=== PATIENT | female | born 1960 | race Caucasian/White ===

== ENCOUNTER 2019-12-22 11:55 | Emergency (ER) | payer OTHER, MEDICARE ==
--- NOTE | 2019-12-22 12:06 | ER Document Report ---
ED Medical Screen (RME) - General Chief Complaint: Back Pain Stated Complaint: BACK PAIN Time Seen by Provider: 12/22/19 12:04 Notes: HPI: 59-year-old female presenting with right lower back pain intermittent for the last 3 to 4 days with history of kidney stones. States she had a kidney stone on the left a month ago. Reports some discomfort with urination occasional nausea no fever no vomiting states pain feels similar to prior kidney stones PHYSICAL EXAMINATION: Mild tenderness of the right lateral lumbar musculature of the back. No flank or abdominal pain on palpation I have greeted and performed a rapid initial assessment of this patient. A comprehensive ED assessment and evaluation of the patient, analysis of test results and completion of medical decision making process will be conducted by an additional ED providers. - Related Data Allergies/Adverse Reactions: codeine Allergy (Verified 12/22/19 12:02) Physical Exam - Vital signs Vitals: Temp Pulse Resp BP Pulse Ox 98.6 F 77 19 150/94 H 99 12/22/19 12:02 12/22/19 12:02 12/22/19 12:02 12/22/19 12:02 12/22/19 12:02 Course - Vital Signs Vital signs: Temp Pulse Resp BP Pulse Ox 98.6 F 77 19 150/94 H 99 12/22/19 12:02 12/22/19 12:02 12/22/19 12:02 12/22/19 12:02 12/22/19 12:02
--- NOTE | 2019-12-22 12:23 | ER Document Report ---
ED GI/ - General Chief Complaint: Flank Pain Stated Complaint: BACK PAIN Time Seen by Provider: 12/22/19 12:04 Information source: Patient Notes: This 59-year-old female presented to the emergency room today stating that she has discomfort to her right flank with radiation around to the groin she states she had a kidney stone ago and this does feel somewhat similar. - HPI Patient complains to provider of: Dysuria Timing/Duration: Gradual Quality of pain: Achy Severity at maximum: Moderate - Related Data Allergies/Adverse Reactions: codeine Allergy (Verified 12/22/19 12:02) Past Medical History - General Information source: Patient - Social History Smoking Status: Never Smoker Cigarette use (# per day): No Chew tobacco use (# tins/day): No Smoking Education Provided: No Family History: None Review of Systems - Review of Systems Constitutional: No symptoms reported EENT: No symptoms reported Cardiovascular: No symptoms reported Respiratory: No symptoms reported Gastrointestinal: No symptoms reported Genitourinary: No symptoms reported Female Genitourinary: No symptoms reported Musculoskeletal: No symptoms reported Skin: No symptoms reported Hematologic/Lymphatic: No symptoms reported Neurological/Psychological: No symptoms reported Physical Exam - Vital signs Vitals: Temp Pulse Resp BP Pulse Ox 98.6 F 77 19 150/94 H 99 12/22/19 12:02 12/22/19 12:02 12/22/19 12:02 12/22/19 12:02 12/22/19 12:02 Interpretation: Normal - General General appearance: Appears well, Alert - HEENT Head: Normocephalic, Atraumatic Eyes: Normal Pupils: PERRL - Respiratory Respiratory status: No respiratory distress Chest status: Nontender Breath sounds: Normal Chest palpation: Normal - Cardiovascular Rhythm: Regular Heart sounds: Normal auscultation Murmur: No - Abdominal Inspection: Normal Distension: No distension Bowel sounds: Normal Tenderness: Nontender Organomegaly: No organomegaly - Back Back: Normal - Right flank pain lateral to midline radiation around to the groin. She had no midline tenderness no step-off no crepitus she is ambulatory with a rhythmic and steady gait., Nontender - Extremities General upper extremity: Normal inspection, Nontender, Normal color, Normal ROM, Normal temperature General lower extremity: Normal inspection, Nontender, Normal color, Normal ROM, Normal temperature, Normal weight bearing. No: Ashish's sign - Neurological Neuro grossly intact: Yes Cognition: Normal Orientation: AAOx4 [place] Coma Scale Eye Opening: Spontaneous [place] Coma Scale Verbal: Oriented Santiago Coma Scale Motor: Obeys Commands Santiago Coma Scale Total: 15 Speech: Normal Motor strength normal: LUE, RUE, LLE, RLE Sensory: Normal - Psychological Associated symptoms: Normal affect, Normal mood - Skin Skin Temperature: Warm Skin Moisture: Dry Skin Color: Normal Course - Vital Signs Vital signs: Temp Pulse Resp BP Pulse Ox 98.6 F 77 19 150/94 H 99 12/22/19 12:02 12/22/19 12:02 12/22/19 12:02 12/22/19 12:02 12/22/19 12:02 - Laboratory Result Diagrams: 12/22/19 13:03 12/22/19 13:03 Laboratory results interpreted by me: 12/22/19 12/22/19 13:03 13:03 Glucose 154 H AST 52 H ALT 51 H Urine Protein 30 H Ur Leukocyte Esterase LARGE H Urine Ascorbic Acid 40 H - Diagnostic Test Radiology reviewed: Image reviewed, Reports reviewed Radiology results interpreted by me: 12/22/19 13:49 Abdomen/Pelvis CT 12/22/19 12:06 IMPRESSION: No evidence of acute intra-abdominal infectious/inflammatory process or obstructive uropathy. Chronic and incidental findings as detailed above. Discharge - Discharge Clinical Impression: UTI (urinary tract infection) Qualifiers: Urinary tract infection type: site unspecified Hematuria presence: without hematuria Qualified Code(s): N39.0 - Urinary tract infection, site not specified Condition: Good Disposition: HOME, SELF-CARE Instructions: Urinary Tract Infection ([facility]), Low Back Pain ([facility]), Nitrofurantoin ([facility]) Prescriptions: Nitrofurantoin Monohyd/M-Cryst [Macrobid 100 mg Capsule] 100 mg PO BID #20 cap Phenazopyridine HCl [Pyridium 200 mg Tablet] 200 mg PO TID #15 tablet
[2019-12-22] MEDS: KETOROLAC TROMETHAMINE INJ/PF 30 MG/1 ML SDV IV ONE ×2 (12:43→12:57)
[2019-12-22] MEDS ORDERED: KETOROLAC TROMETHAMINE 60 MG/2 ML SDV IM ONE (12:56)
--- NOTE | 2019-12-22 12:59 | RADIOLOGY REPORT (SQ) ---
EXAM DESCRIPTION: CT ABD/PELVIS NO ORAL OR IV IMAGES COMPLETED DATE/TIME: 12/22/2019 12:40 pm REASON FOR STUDY: right flank pain COMPARISON: None. TECHNIQUE: CT scan of the abdomen and pelvis performed without intravenous or oral contrast. Images reviewed with lung, soft tissue, and bone windows. Reconstructed coronal and sagittal MPR images revi ewed. All images stored on PACS. All CT scanners at this facility use dose modulation, iterative reconstruction, and/or weight based d osing when appropriate to reduce radiation dose to as low as reasonably achievable (ALARA). [facility]: Dose Right [facility]: CareDose [facility]: Dose Right [facility]: Teradose 4D [facility]: Smart He[employer] RADIATION DOSE: CT Rad equipment meets quality standard of care and radiation dose reduction techniq ues were employed. CTDIvol: 18.1 mGy. DLP: 1096 mGy-cm.mGy. LIMITATIONS: None. FINDINGS: LOWER CHEST: No significant findings. No nodules or infiltrates. NON-CONTRASTED LIVER, SPLEEN, ADRENALS: Evaluation limited by lack of IV contrast. No identified sign ificant masses. PANCREAS: No masses. No peripancreatic inflammatory changes. GALLBLADDER: Surgically absent. RIGHT KIDNEY AND URETER: No suspicious masses. Assessment limited by lack of IV contrast. No signif icant calcifications. No hydronephrosis or hydroureter. LEFT KIDNEY AND URETER: No suspicious masses. Assessment limited by lack of IV contrast. No signifi cant calcifications. No hydronephrosis or hydroureter. AORTA AND RETROPERITONEUM: No aneurysm. No retroperitoneal masses or adenopathy. BOWEL AND PERITONEAL CAVITY: No obvious masses or inflammatory changes. No free fluid. APPENDIX: Normal. PELVIS, BLADDER, AND ABDOMINAL WALL:The bladder is decompressed. No masses. No free fluid. BONES: No significant findings. 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 OTHER: No other significant finding. IMPRESSION: No evidence of acute intra-abdominal infectious/inflammatory process or obstructive urop athy. Chronic and incidental findings as detailed above. COMMENT: Quality ID # [id number]: Final reports with documentation of one or more dose reduction techniques (e.g., Automated exposure control, adjustment of the mA and/or kV according to patient size, use of iterative reconstruction technique) TECHNICAL DOCUMENTATION: JOB ID: [id number] 2011 [employer]- All Rights Reserved Reading location - IP/workstation name: [email or web address]
[2019-12-22 13:14] LABS: ABSOLUTE EOSINOPHILS # (AUTO) 0.1 10^3/uL (0.0-0.6); ABSOLUTE LYMPHOCYTES (AUTO) 1.9 10^3/uL (0.5-4.7); ABSOLUTE MONOCYTES (AUTO) 0.4 10^3/uL (0.1-1.4); ABSOLUTE NEUT (AUTO) 4.7 10^3/uL (1.7-8.2); BASOPHILS % (AUTO) 0.5 % (0-2); EOSINOPHILS % (AUTO) 1.6 % (0-6); HEMATOCRIT 40.6 % (36.0-47.0); HEMOGLOBIN 13.8 g/dL (12.0-15.5); LYMPHOCYTES % (AUTO) 26.4 % (13-45); MEAN CORPUSCULAR HEMOGLOBIN 31.2 pg (27.0-33.4); MEAN CORPUSCULAR VOLUME 92 fl (80-97); MONOCYTES % (AUTO) 5.2 % (3-13); PLATELET COUNT 284 10^3/uL (150-450); RED BLOOD COUNT 4.41 10^6/uL (3.72-5.28); RED CELL DISTRIBUTION WIDTH 13.6 % (11.5-14.0); SEGMENTED NEUTROPHILS % (AUTO) 66.3 % (42-78); TOTAL CELLS COUNTED % (AUTO) 100 %; WHITE BLOOD COUNT 7.1 10^3/uL (4.0-10.5)
[2019-12-22 13:18] LABS: APPEARANCE,URINE SLIGHTLY-CLOUDY; BILIRUBIN,URINE NEGATIVE (NEGATIVE); COLOR,URINE YELLOW; GLUCOSE, URINE NEGATIVE (NEGATIVE); KETONES,URINE NEGATIVE (NEGATIVE); LEUKOCYTE ESTERASE,URINE LARGE (NEGATIVE); NITRITE,URINE NEGATIVE (NEGATIVE); PROTEIN,URINE 30 mg/dL (NEGATIVE); URINE SPECIFIC GRAVITY 1.024; UROBILINOGEN,URINE NEGATIVE mg/dL (<2.0)
[2019-12-22 13:32] LABS: ALBUMIN 4.3 g/dL (3.5-5.0); ALKALINE PHOSPHATASE 108 U/L (38-126); ANION GAP 6 (5-19); ASPARTATE AMINO TRANSFERASE 52 U/L (14-36); BILIRUBIN,DIRECT 0.1 mg/dL (0.0-0.4); BILIRUBIN,TOTAL 0.4 mg/dL (0.2-1.3); BLOOD UREA NITROGEN 16 mg/dL (7-20); CALCIUM 9.4 mg/dL (8.4-10.2); CARBON DIOXIDE 28 mmol/L (22-30); CHLORIDE 103 mmol/L (98-107); GLUCOSE 154 mg/dL (75-110); POTASSIUM 4.7 mmol/L (3.6-5.0); TOTAL PROTEIN 7.3 g/dL (6.3-8.2)
[2019-12-22] MEDS ORDERED: CEFTRIAXONE INJ 1000 MG VIAL IM ONE (13:48)
[2019-12-22] MEDS ORDERED: LIDOCAINE 1% INJ (10 MG/ML) 10 ML MDV INJ ONE (13:55)
[2019-12-22 14:06] VITALS: BP 152/92
== END 2019-12-22 14:40 | disposition home or self-care (01) ==
LOC: ER 11:55
DX: N39.0 Urinary tract infection, site not specified (principal); R30.0 Dysuria; R10.9 Unspecified abdominal pain; M54.9 Dorsalgia, unspecified; R10.31 Right lower quadrant pain; Z87.442 Personal history of urinary calculi
CPT/HCPCS: 99284; 96372; 36415; 85025; 80053; 81001; 74176; J1885; J0696

== ENCOUNTER 2020-05-10 14:26 | Emergency (ER) | payer OTHER, MEDICARE ==
--- NOTE | 2020-05-10 15:05 | ER Document Report ---
ED Medical Screen (RME) - General Chief Complaint: Back Pain Stated Complaint: LOWER BACK PAIN,URINARY ISSUES Time Seen by Provider: 05/10/20 14:51 Mode of Arrival: Ambulatory Information source: Patient Notes: Patient is a 59-year-old female comes emergency room with 2 complaints. Patient's first complaint is that she started with a urinary tract infection approximately 1 week ago. States is getting worse. She states that she is having urgency with it and it stings when she urinates. Also #2 patient states that approximately the same time may be a couple days before that she fell in the back landing on her buttocks. She is complaining of low back pain. Patient does not know whether the back pain is from the urinary tract infection or from when she fell in the shower. Patient has a history of hypertension and oral dependent diabetes. Patient was last seen here in December for similar presentation. At that time she was diagnosed with a urinary tract infection. Physical exam shows patient to be a well-nourished well-developed obese 59-year-old female who is in no apparent distress on examination today. Cardiac: Patient displays a regular rate on the monitor of 78 bpm rhythm appears normal on auscultation and there is no murmurs auscultated. Lungs: Bilateral breath sounds breath sounds increased clear to auscultation. Abdomen: Bowel sounds are present all 4 quads in the sitting position patient has some mild tenderness to deep palpation suprapubically. But all quadrants are negative besides that. Back: Examination patient's her concern does show some reproducible tenderness in the L4-L5 area to palpation. Quick neuro examination the patient shows that she has good strength in bilateral lower extremities. She has good sensation from the inner ankles to the groin as she does from the outer ankles to the hips no sign of saddle paresthesia. I have greeted and performed a rapid initial assessment of this patient. A comprehensive ED assessment and evaluation of the patient, analysis of test results and completion of the medical decision making process will be conducted by additional ED providers. Dictation of this chart was performed using voice recognition software; therefore, there may be some unintended grammatical errors. - Related Data Allergies/Adverse Reactions: codeine Allergy (Verified 12/22/19 12:02) Past Medical History - Social History Chew tobacco use (# tins/day): No Frequency of alcohol use: None Drug Abuse: None Endocrine Medical History: Reports: Hx Diabetes Mellitus Type 2 Physical Exam - Vital signs Vitals: Temp Pulse Resp BP Pulse Ox 97.9 F 78 18 153/85 H 97 05/10/20 14:30 05/10/20 14:30 05/10/20 14:30 05/10/20 14:30 05/10/20 14:30 Course - Vital Signs Vital signs: Temp Pulse Resp BP Pulse Ox 97.9 F 78 18 153/85 H 97 05/10/20 14:30 05/10/20 14:30 05/10/20 14:30 05/10/20 14:30 05/10/20 14:30
--- NOTE | 2020-05-10 16:22 | RADIOLOGY REPORT (SQ) ---
EXAM DESCRIPTION: L SPINE WHOLE IMAGES COMPLETED DATE/TIME: 05/10/2020 4:04 pm REASON FOR STUDY: Fall COMPARISON: None. NUMBER OF VIEWS: Five views including obliques. TECHNIQUE: AP, lateral, oblique, and sacral radiographic images acquired of the lumbar spine. LIMITATIONS: None. FINDINGS: MINERALIZATION: Normal. SEGMENTATION: Normal. No transitional anatomy. ALIGNMENT: Mild scoliosis convex left VERTEBRAE: Maintained height. No fracture or worrisome bone lesion. DISCS: Degenerative disc disease L2-3 and L3-4 with disc space narrowing. POSTERIOR ELEMENTS: Pedicles and facets are intact. No pars defect or posterior arch defects. HARDWARE: None in the spine. PARASPINAL SOFT TISSUES: Normal. PELVIS: Intact as visualized. No fractures or worrisome bone lesions. SI joints intact. OTHER: No other significant finding. IMPRESSION: Degenerative disc disease. No acute findings. TECHNICAL DOCUMENTATION: JOB ID: [id number] 2010 [employer]- All Rights Reserved Reading location - IP/workstation name: [email or web address]
[2020-05-10 17:01] LABS: APPEARANCE,URINE CLEAR; BILIRUBIN,URINE NEGATIVE (NEGATIVE); COLOR,URINE STRAW; GLUCOSE, URINE NEGATIVE (NEGATIVE); KETONES,URINE NEGATIVE (NEGATIVE); LEUKOCYTE ESTERASE,URINE TRACE (NEGATIVE); NITRITE,URINE NEGATIVE (NEGATIVE); PROTEIN,URINE NEGATIVE (NEGATIVE); URINE SPECIFIC GRAVITY 1.008; UROBILINOGEN,URINE NEGATIVE mg/dL (<2.0)
[2020-05-10] MEDS ORDERED: KETOROLAC TROMETHAMINE 60 MG/2 ML SDV IM ONE (17:24)
--- NOTE | 2020-05-10 17:32 | ER Document Report ---
ED General - General Chief Complaint: Back Pain Stated Complaint: LOWER BACK PAIN,URINARY ISSUES Time Seen by Provider: 05/10/20 14:51 Primary Care Provider: TIARRA,FRED [Primary Care Provider] - Follow up as needed Mode of Arrival: Ambulatory Information source: Patient Notes: Patient presents to the ER for evaluation of low back pain with dysuria that began approximately 1 week ago. The patient states she was diagnosed with a urinary tract infection at that time. She states she also fell in the shower approximately 2 days prior to the diagnosis of the urinary tract infection. She denies weakness or numbness in the lower extremities. She denies fever. She denies loss of bowel or bladder. She is ambulatory but states it caused increased pain in the low back. The patient states she does have type 2 diabetes and takes her medication as prescribed. She states she does not check her blood sugar. She is concerned her blood sugar may be causing her problems. Nursing notes reviewed and past medical, social, and family histories reviewed and validated. - Related Data Allergies/Adverse Reactions: codeine Allergy (Verified 12/22/19 12:02) Past Medical History - General Information source: Patient - Social History Smoking Status: Never Smoker Chew tobacco use (# tins/day): No Frequency of alcohol use: None Drug Abuse: None Lives with: Family Family History: None Patient has suicidal ideation: No Patient has homicidal ideation: No Pulmonary Medical History: Reports: None EENT Medical History: Reports: None Neurological Medical History: Reports: None Endocrine Medical History: Reports: Hx Diabetes Mellitus Type 2 Renal/ Medical History: Reports: Other - Urinary tract infections Malignancy Medical History: Reports: None GI Medical History: Reports: None Musculoskeletal Medical History: Reports None Skin Medical History: Reports None Psychiatric Medical History: Reports: None Traumatic Medical History: Reports: None Infectious Medical History: Reports: None Past Surgical History: Reports: None - Immunizations Immunizations up to date: Yes Hx Diphtheria, Pertussis, Tetanus Vaccination: Yes Review of Systems - Review of Systems Notes: Constitutional: Negative for fever. HENT: Negative for sore throat. Eyes: Negative for visual changes. Cardiovascular: Negative for chest pain. Respiratory: Negative for shortness of breath. Gastrointestinal: Negative for abdominal pain, vomiting or diarrhea. Genitourinary: Positive dysuria Musculoskeletal: Positive low back pain Skin: Negative for rash. Neurological: Negative for headaches, weakness or numbness. 10 point ROS negative except as marked above and in HPI. Physical Exam - Vital signs Vitals: Temp Pulse Resp BP Pulse Ox 97.9 F 78 18 153/85 H 97 05/10/20 14:30 05/10/20 14:30 05/10/20 14:30 05/10/20 14:30 05/10/20 14:30 - Notes Notes: CONSTITUTIONAL: Well appearing. No acute distress. SKIN: Warm, dry, and intact without rash EYES: Extraocular movements are grossly intact, clear conjunctiva HENT: Normocephalic, atraumatic, moist mucus membranes NECK: No obvious swelling, normal range of motion PULMONARY: Normal chest rise and fall. Breath sounds clear and equal bilaterally. No respiratory distress or stridor CARDIOVASCULAR: Regular rate. No murmurs, rubs, gallops. Distal extremities are warm and well perfused. ABDOMINAL: Soft, nontender NEUROLOGIC: Normal speech, moves all extremities. Cranial nerves are within normal limits. Overhead Cleaner Maintainer strength strong and equal in the upper extremities bilaterally. There is good strength and sensation in bilateral lower extremities. There is no arm or leg drift noted. MUSCULOSKELETAL: There is mild tenderness palpation of the paravertebral lumbar muscles. No spinal tenderness noted. PSYCHIATRIC: Normal mood and affect Course - Re-evaluation Re-evalutation: 05/10/20 17:25 Rechecked patient who has responded well to treatment in the ER. Discussed with patient: results, diagnosis, treatment plan, and need for follow-up. Return to the emergency department warnings were given. All questions and concerns were addressed. The plan is agreed with and understood. Patient is stable and ready for discharge. - Vital Signs Vital signs: Temp Pulse Resp BP Pulse Ox 97.9 F 78 18 153/85 H 97 05/10/20 14:30 05/10/20 14:30 05/10/20 14:30 05/10/20 14:30 05/10/20 14:30 - Laboratory Laboratory results interpreted by me: 05/10/20 05/10/20 16:35 17:11 POC Glucose 140 H Ur Leukocyte Esterase TRACE H Discharge - Discharge Clinical Impression: Dysuria Diabetes Qualifiers: Diabetes mellitus type: type 2 Diabetes mellitus fpc insulin use: without fpc use Diabetes mellitus complication status: with hyperglycemia Qualified Code(s): E11.65 - Type 2 diabetes mellitus with hyperglycemia Low back pain Qualifiers: Chronicity: acute Back pain laterality: bilateral Sciatica presence: without sciatica Qualified Code(s): M54.5 - Low back pain Condition: Good Disposition: HOME, SELF-CARE Instructions: Low Back Pain ([facility]) Additional Instructions: Be sure to take your diabetes medication and follow-up with your primary care doctor as discussed. You need to be checking your blood sugar daily. Prescriptions: Ketorolac Tromethamine [Toradol 10 mg Tablet] 10 mg PO Q8HP PRN #12 tablet PRN Reason: For Pain Referrals: [facility] [Primary Care Provider] - Follow up as needed
[2020-05-10 17:48] VITALS: BP 148/80
== END 2020-05-10 17:48 | disposition home or self-care (01) ==
LOC: ER 14:26
DX: E11.65 Type 2 diabetes mellitus with hyperglycemia (principal); M54.5 Low back pain; R30.0 Dysuria; Z88.6 Allergy status to analgesic agent
CPT/HCPCS: 99284; 96372; 87086; 82962; 81001; 72110; J1885

== ENCOUNTER 2020-05-17 07:09 | Emergency (ER) | payer OTHER, MEDICARE ==
--- NOTE | 2020-05-17 07:37 | ER Document Report ---
ED Medical Screen (RME) - General Chief Complaint: Cough Stated Complaint: COUGH,SORE THROAT,CHEST TIGHTNESS Time Seen by Provider: 05/17/20 07:30 Primary Care Provider: FRED MAYEN [Primary Care Provider] - Follow up as needed Notes: Patient presents complaining of sore throat for the past 4 days with cough that started today. Patient states she has had diarrhea recently. Patient denies any fever. Patient reports underlying history of chronic back pain and bipolar disorder. I have greeted and performed a rapid initial assessment of this patient. A comprehensive ED assessment and evaluation of the patient, analysis of test results and completion of the medical decision making process will be conducted by additional ED providers. - Related Data Allergies/Adverse Reactions: codeine Allergy (Verified 12/22/19 12:02) Past Medical History Endocrine Medical History: Reports: Hx Diabetes Mellitus Type 2 - Immunizations Immunizations up to date: Yes Hx Diphtheria, Pertussis, Tetanus Vaccination: Yes Physical Exam - Vital signs Vitals: Temp Pulse Resp BP Pulse Ox 97.8 F 74 16 162/100 H 98 05/17/20 07:22 05/17/20 07:22 05/17/20 07:22 05/17/20 07:22 05/17/20 07:22 - Respiratory Respiratory status: No respiratory distress Chest status: Pain with cough Breath sounds: Nonproductive cough Chest palpation: Normal Course - Vital Signs Vital signs: Temp Pulse Resp BP Pulse Ox 97.8 F 74 16 162/100 H 98 05/17/20 07:22 05/17/20 07:22 05/17/20 07:22 05/17/20 07:22 05/17/20 07:22 Doctor's Discharge - Discharge Referrals: FRED MAYEN [Primary Care Provider] - Follow up as needed
--- NOTE | 2020-05-17 08:23 | RADIOLOGY REPORT (SQ) ---
EXAM DESCRIPTION: CHEST SINGLE VIEW IMAGES COMPLETED DATE/TIME: 05/17/2020 7:46 am REASON FOR STUDY: cough COMPARISON: None. EXAM PARAMETERS: NUMBER OF VIEWS: One view. TECHNIQUE: Single frontal radiographic view of the chest acquired. RADIATION DOSE: NA LIMITATIONS: None. FINDINGS: LUNGS AND PLEURA: No opacities, masses or pneumothorax. No pleural effusion. MEDIASTINUM AND HILAR STRUCTURES: No masses. Contour normal. HEART AND VASCULAR STRUCTURES: Mild cardiomegaly without central vascular congestion. BONES: No acute findings. HARDWARE: None in the chest. OTHER: No other significant finding. IMPRESSION: NO ACUTE RADIOGRAPHIC FINDING IN THE CHEST. TECHNICAL DOCUMENTATION: JOB ID: [id number] 2010 [employer]- All Rights Reserved Reading location - IP/workstation name: [email or web address]
--- NOTE | 2020-05-17 08:48 | ER Document Report ---
ED General - General Chief Complaint: Cough Stated Complaint: COUGH,SORE THROAT,CHEST TIGHTNESS Time Seen by Provider: 05/17/20 07:30 Primary Care Provider: TIARRA,FRED [Primary Care Provider] - Follow up as needed - HPI Notes: Chief Complaint: soreThroat Historian: History obtained from patient HPI: This is a 59-year-old female complaining of a sore throat, dry cough, diarrhea. Sore throat began 4 days ago. And Covid contacts. Denies chest pain, shortness of breath, abdominal pain, fever, chills, nausea vomiting. She is tolerating p.o. intake. No treatments tried. ROS: Constitutional: no fevers. HEENT: Sore throat CV: no chest pain or palpitations. Resp: Positive cough GI: no abdominal pain, or n/v/d. : Positive diarrhea MSK: no back pain, no joint swelling/redness. Skin: no rashes or itching. Neuro: no seizures, weakness, numbness, or confusion. Hematological: no ecchymosis or easy bleeding. Endocrine: no polyuria/polydipsia, no heat/cold intolerance. Psych: no SI/HI, AH/VH or memory loss. PMHx: Reviewed and agree as charted by RN. PSHx: Reviewed and agree as charted by RN. SOCHx: Reviewed and agree as charted by RN. FHX: No significant familial comorbid conditions directly related to patient complaint Current Medications: Reviewed and agree with the patient medications as charted by the RN. Allergies: Reviewed and agree with the listed allergies as charted by the RN Physical Exam: Vitals: Reviewed in chart as documented by RN. General: Alert and in NAD. Head: Normocephalic; atraumatic Eyes: PERRLA, Conjunctivae clear sclerae non-icteric bilat ENT: Tonsils absent. Mild posterior pharyngeal erythema. No exudate. No soft palate swelling or uvular deviation Neck: trachea midline, no unilateral swelling/tenderness/lymphadenopathy CV: RRR, no M/R/G; symmetric distal pulses Resp: respirations even and unlabored, CTA bilat. GI: abd soft and nondistended. NTTP. normal BS. no masses/HSM. no CVAT bilat MSK: FROM of all extremities. No midline CTL spine tenderness/deformity Skin: warm, moist, good turgor. no rash/lesions Neuro: Alert and oriented X 4. following CN 2-12 intact. no unilateral weakness/numbness Psych: No SI/HI or AH/VH. ED Results: Medical Decision-Making: Medical Decision-making/Differential Diagnosis: Consider various etiologies including but not limited to covid, flu, cap, strep pharyngitis, viral pharyngitis, other pharyngitis, arturo-tonsillar abscess (unlikely), retropharyngeal abscess (unlikely), Acute Suppurative Otitis media, otalgia, upper respiratory infection, viral syndrome, bronchitis, sinusitis, ect Plan-assumed care from previous provider. they had ordered a strep, covid swab, CXR, and ECG. I reviewed results and all are reassuring. Patient's vitals are stable she is afebrile no hypoxia. I suspect pt has a viral URI. I will send in some cough meds for her at pts request. d/c home w/ supportive care. and then she will self quarantine at home until she is called with her Covid results in the next 2 to 5 days. pcp f/u this week. return factors discussed. This course of action was discussed with the patient and/or family. They were amenable to this, verbalized understanding, and were without further questions. Diagnosis: cough, sore throat Condition: stable Disposition: discharge - Related Data Allergies/Adverse Reactions: codeine Allergy (Verified 05/17/20 07:42) Past Medical History - Social History Smoking Status: Never Smoker Chew tobacco use (# tins/day): No Frequency of alcohol use: None Drug Abuse: None Family History: None Endocrine Medical History: Reports: Hx Diabetes Mellitus Type 2 Renal/ Medical History: Reports: Hx Kidney Stones Psychiatric Medical History: Reports: Hx Bipolar Disorder Past Surgical History: Reports: Hx Cholecystectomy - Immunizations Immunizations up to date: Yes Hx Diphtheria, Pertussis, Tetanus Vaccination: Yes Physical Exam - Vital signs Vitals: Temp Pulse Resp BP Pulse Ox 97.8 F 74 16 162/100 H 98 05/17/20 07:22 05/17/20 07:22 05/17/20 07:22 05/17/20 07:22 05/17/20 07:22 Course - Vital Signs Vital signs: Temp Pulse Resp BP Pulse Ox 97.8 F 74 16 162/100 H 98 12/03/20 07:22 05/17/20 07:22 05/17/20 07:22 05/17/20 07:22 05/17/20 07:22 - EKG Interpretation by Me EKG shows normal: Sinus rhythm Rate: Normal Rhythm: NSR [place]/QRS: No: Right axis deviation, Left axis deviation, RBBB, LBBB, IVCD, LAHB/LAFB, LPHB/LPFB, Bifasicular block Voltage: No: Increased voltage, Consistent with LVH, Consistent with RVH, Decreased voltage, Throughout, Limb leads When compared to previous EKG there are: Previous EKG unavailable - NSRrate 73, normal axis, CA 164, QTc 463, no ST E/STD. Additional EKG results interpreted by me: 05/17/20 08:52 Reviewed by ED physicianDr. Estrada Discharge - Discharge Clinical Impression: Cough, Sore throat Condition: Stable Disposition: HOME, SELF-CARE Instructions: COVID-19 Guidance for Persons Under Investigation, Sore Throat ([facility]) Prescriptions: Dextromethorphan Polistirex [Delsym] 5 ml PO BIDP PRN #120 ml PRN Reason: Cough [facility]: [facility] [[facility] - Follow up as needed
[2020-05-17 09:07] VITALS: BP 146/82
[2020-05-17 10:06] LABS: A TYPE INFLUENZA AG NEGATIVE (NEGATIVE); B INFLUENZA AG NEGATIVE (NEGATIVE)
--- NOTE | 2020-05-17 17:47 | EKG REPORT ---
SEVERITY:- NORMAL ECG - SINUS RHYTHM : Confirmed by: Iron Herrera MD 17-May-2020 17:47:13
== END 2020-05-17 09:06 | disposition home or self-care (01) ==
LOC: ER 07:09
DX: R05 Cough (principal); J02.9 Acute pharyngitis, unspecified; R07.9 Chest pain, unspecified; E11.9 Type 2 diabetes mellitus without complications
CPT/HCPCS: 93005; 99285; 87070; 87880; 87635; 87804; 71045; 93010; C9803